=== PATIENT | female | born 1955 | race Caucasian/White ===

== ENCOUNTER 2018-05-21 05:35 | Day surgery (SDC) | payer OTHER ==
[2018-05-18 16:22] VITALS: BMI 26.6
[~2018-05-21 05:35] MED LIST: Pre Op ABX Message 1 EACH MISC MISCELLANE ONE
[2018-05-21] MEDS ORDERED: HYDROmorphone 1 MG/ML 1 ML SYRINGE IVP PRN (06:08)
[2018-05-21] MEDS ORDERED: ONDANSETRON 4 MG/2 ML VIAL IVP ONE (06:08)
[2018-05-21] MEDS ORDERED: MIDAZOLAM 2 MG/2 ML VIAL IV PRN (06:08)
[2018-05-21] MEDS ORDERED: SCOPOLAMINE 1.5MG/72HR PATCH TRANSDERM ONE (06:08)
[2018-05-21] MEDS ORDERED: LACTATED RINGERS 1,000 ML IV SCH (06:08)
[2018-05-21] MEDS ORDERED: DEXAMETHASONE SOD PHOSPHATE 10 MG/ML 1 ML VIAL IV ONE (06:08)
[2018-05-21] MEDS ORDERED: LIDOCAINE 1% 20 ML VIAL (10MG/ML) FOR IV START INTRADERMA ONE (06:30)
[2018-05-21 06:34] VITALS: TEMP 97.8
[2018-05-21] MEDS ORDERED: MIDAZOLAM 2 MG/2 ML VIAL ONE (07:25)
[2018-05-21] MEDS ORDERED: PROPOFOL 10 MG/ML 20 ML VIAL IV ONE (07:25)
[2018-05-21] MEDS ORDERED: ceFAZolin 1,000 MG VIAL ONE (07:25)
[2018-05-21] MEDS ORDERED: LIDOCAINE 1% INJ 10MG/ML (20 ML MDV) ONE (07:25)
[2018-05-21] MEDS ORDERED: fentaNYL (PF) 50 MCG/ML 2 ML AMP ONE (07:25)
[2018-05-21] MEDS ORDERED: LIDOCAINE HCL/PF 20 MG/ML ML SQ ONE ×2 (07:55)
[2018-05-21] MEDS ORDERED: ROPIVACAINE 5 MG/ML 30 ML VIAL MISCELLANE ONE ×2 (07:56)
--- NOTE | 2018-05-21 09:05 | P.PCN ---
Date of Procedure: 05/21/18 Preoperative Diagnosis: Painful hammertoe left fifth Postoperative Diagnosis: Same Procedure(s) Performed: Derotational arthroplasty fifth digit right Anesthesia: local Surgeon: Kayode Hutchinson Estimated Blood Loss (ml): 3 Pathology: none sent Condition: stable Disposition: same day Indications for Procedure: Painful adductovarus hammertoe fifth digit left Operative Findings: Same as clinical findings Description of Procedure: Patient presented 2 hours prior to foot surgery having been nothing by mouth since previous midnight all labs H&P x-rays consent were reviewed and no counter indication to the above proposed procedure found patient was brought to the OR and placed on the OR table in supine position. A pneumatic tourniquet was applied with copious amounts well will web roll placed beneath the tourniquet. The left foot was then prepped and draped in the usual aseptic manner. Attention was then directed to the fifth digit left foot where the digit was anesthetized with a Jimenez block using 7 mL of 2% Xylocaine plain about the fifth metatarsal proximally. The foot was then exsanguinated via elevation and use of an Vivek wrap for 3 minutes after which time the pneumatic tourniquet was inflated 250 mmHg. Attention was then directed to the lateral aspect of the fifth digit at the level of proximal interphalangeal joint. 2 semi- elliptical converging incisions were made running from dorsal distal medial to proximal plantar lateral across the proximal interphalangeal joint. The wound was then deepened down to the proximal interphalangeal joint avoiding all vital structures. The tendon was then tenotomized from medial lateral and capsular tissue was reflected off the head of the proximal phalanx on its dorsal medial lateral plantar surface. Using a sagittal saw the head of the proximal phalanx was removed. The foot was then loaded and adequate surgical reduction clinical deformity was noted. The wound was copiously lavaged with sterile saline solution. The tendon was repaired with 3-0 Vicryl simper up to sutures. Skin edges were reapproximated with 4-0 nylon horizontal mattress and simple interrupted sutures. The foot was then anesthetized with additional 7 mL of 0.5 % Marcaine in a similar fashion as above. The wound was then dressed with Adaptic 4 x 4's Kerlix pneumatic tourniquet was deflated and adequate surgical return was noted to all areas of the left foot. An Vivek wrap was placed over the dressing to secure this in a mildly compressive manner. Patient was brought to recovery room from the [facility] having tolerated procedure and anesthesia well patient was monitored until stable and discharged with postop shoe weightbearing and postop instructions. Patient is to return to clinic as instructed.
[2018-05-21 09:29] VITALS: BP 103/62; PULSE 74; RESP 18
== END 2018-05-21 09:32 | disposition home or self-care (01) ==
LOC: OR 05:35
PROVIDERS: ATTEND Podiatrist
DX: M20.42 Other hammer toe(s) (acquired), left foot (principal); E78.5 Hyperlipidemia, unspecified; H40.9 Unspecified glaucoma; E78.1 Pure hyperglyceridemia; N39.46 Mixed incontinence; Z87.891 Personal history of nicotine dependence; K21.9 Gastro-esophageal reflux disease without esophagitis; Z85.3 Personal history of malignant neoplasm of breast; Z92.21 Personal history of antineoplastic chemotherapy; Z79.810 Long term (current) use of selective estrogen receptor modulators (SERMs); Z92.3 Personal history of irradiation; Z79.82 Long term (current) use of aspirin; Z79.899 Other long term (current) drug therapy
CPT/HCPCS: 28285; J2250; J1100; J2405; J0690; J2001 ×2; J3010; J2795; J2704

== ENCOUNTER 2019-02-17 13:37 | Inpatient (IN) | payer OTHER ==
[2019-02-17] MEDS ORDERED: PIPERACILLIN-TAZOBACTAM 3.375 GM in SODIUM CHLORIDE 0.9% 100 ML IVPB STA (14:56)
[2019-02-17 15:06] LABS: Basophils % (A) 0 %; Eosinophils # (A) 0.2 k/uL (0-0.7); Eosinophils % (A) 1 %; HCT 38.2 % (34.0-46.0); HGB 12.6 gm/dL (11.4-16.0); Lymphocytes # (A) 1.6 k/uL (1.0-4.8); Lymphocytes % (A) 12 %; MCH 31.6 pg (25.0-35.0); MCHC 33.1 g/dL (31.0-37.0); MCV 95.7 fL (80.0-100.0); Mean Platelet Volume 7.3; Monocytes # (A) 0.8 k/uL (0-1.0); Monocytes % (A) 6 %; Neutrophils # (A) 10.3 k/uL (1.3-7.7); Neutrophils % (A) 78 %; Platelet Count 302 k/uL (150-450); RBC 3.99 m/uL (3.80-5.40); RDW 13.2 % (11.5-15.5); WBC 13.1 k/uL (3.8-10.6)
[2019-02-17 15:13] LABS: ALT 38 U/L (9-52); AST 40 U/L (14-36); African American GFR (CKD) >90 (>60 ml/min/1.73 sqM); Albumin 3.6 g/dL (3.5-5.0); Alkaline Phosphatase 91 U/L (38-126); Anion Gap 7 mmol/L; Blood Urea Nitrogen 8 mg/dL (7-17); Calcium 9.5 mg/dL (8.4-10.2); Carbon Dioxide 34 mmol/L (22-30); Chloride 94 mmol/L (98-107); Glucose 120 mg/dL (74-99); Potassium 3.7 mmol/L (3.5-5.1); Sodium 135 mmol/L (137-145); Total Bilirubin 0.8 mg/dL (0.2-1.3); Total Protein 6.7 g/dL (6.3-8.2)
[2019-02-17 15:24] LABS: Appearance,Urine Clear (Clear); Bilirubin,Urine Negative (Negative); Blood,Urine Negative (Negative); Color,Urine Light Yellow; Glucose,Urine (UA) Negative (Negative); Ketones,Urine Negative (Negative); Leukocyte Esterase,Urine Negative (Negative); Nitrite,Urine Negative (Negative); PH, Urine 6.5 (5.0-8.0); Protein,Urine Negative (Negative); Specific Gravity,Urine 1.003 (1.001-1.035); Urobilinogen,Urine <2.0 mg/dL (<2.0)
--- NOTE | 2019-02-17 16:40 | CT ---
EXAMINATION TYPE: CT shoulder RT w con DATE OF EXAM: 02/17/2019 COMPARISON: None HISTORY: axilla abscesses CT DLP: 274.4 mGycm Automated exposure control for dose reduction was used. CONTRAST: Performed with IV Contrast, patient injected with 100 mL of Isovue 300. FINDINGS: Multiple axial sections were obtained from the top of the AC joint to the proximal humerus with intra venous contrast. Exam includes the axilla. There is minor spurring at the shoulder joint. There is spurring at the AC joint. There is subcutaneo us edema in the axilla. There is skin thickening with edema seen on the medial aspect of the axillary recess. There are apparent surgical clips in the medial right axilla. I see no drainable fluid colle ction. There is a 1 cm axillary lymph node. I see no focal bone destruction. IMPRESSION: THERE IS SKIN THICKENING AND MEDIAL SUBCUTANEOUS EDEMA CONSISTENT WITH PHLEGMON AND CELLULITIS. NO DR CROUCH FLUID COLLECTION. SURGICAL CLIPS. NONSPECIFIC AXILLARY LYMPH NODE. NO EVIDENCE OF OSTEOMYELIT IS. OSTEOARTHRITIC CHANGES IN THE SHOULDER JOINT.
--- NOTE | 2019-02-17 16:58 | ED ---
General Adult HPI - General Chief complaint: Skin/Abscess/Foreign Body Stated complaint: infection under arm, sent by Time Seen by Provider: 02/17/19 14:13 Source: patient, family Mode of arrival: wheelchair Limitations: no limitations - History of Present Illness Initial comments: Patient is 64-year-old female with history of breast cancer is presenting to emergency Department with a chief complaint of infection in the armpit. Patient reports she noticed pain in the right axilla approximately one week ago. She reported the pain to the caregiver who did not examine the axilla until today. Caregiver states they went to the primary care today who suggested he come to the ED for further evaluation. Patient reports yellow/white drainage from the infection site. Patient denies any fevers night sweats or chills. Patient denies a previous history of axillary infections. Patient denies nausea or vomiting. Patient reports the pain is exacerbated with palpation and alleviated with rest. Patient has history of breast cancer and had previous surgical procedure on the right breast - Related Data Home Medications Medication Instructions Recorded Confirmed Aspirin 81 mg PO DAILY 05/19/18 02/17/19 Atorvastatin [Lipitor] 10 mg PO HS 05/19/18 02/17/19 Citalopram Hydrobromide 40 mg PO HS 05/19/18 02/17/19 [Citalopram HBr] Gabapentin [Neurontin] 100 mg PO TID 05/19/18 02/17/19 Multivitamins, Thera [Multivitamin 1 tab PO DAILY 05/19/18 02/17/19 (formulary)] [place]-3 Fatty Acids [[place]-3] 1,000 mg PO HS 05/19/18 02/17/19 Omeprazole 20 mg PO DAILY 05/19/18 02/17/19 Oxybutynin Chloride [Ditropan] 5 mg PO BID 05/19/18 02/17/19 traZODone HCL 150 mg PO HS 05/19/18 02/17/19 Acetaminophen [Tylenol Extra 1,000 mg PO HS PRN 02/17/19 02/17/19 Strength] risperiDONE 3 mg PO HS 02/17/19 02/17/19 Allergies Allergy/AdvReac Type Severity Reaction Status Date / Time No Known Allergies Allergy Verified 02/17/19 16:04 Review of Systems ROS Statement: Those systems with pertinent positive or pertinent negative responses have been documented in the HPI. ROS Other: All systems not noted in ROS Statement are negative. Past Medical History Past Medical History: Cancer, Osteoarthritis (OA) Additional Past Medical History / Comment(s): breast cancer History of Any Multi-Drug Resistant Organisms: None Reported Past Surgical History: Breast Surgery Past Anesthesia/Blood Transfusion Reactions: No Reported Reaction Past Psychological History: Anxiety, Depression Smoking Status: Former smoker Past Alcohol Use History: None Reported Past Drug Use History: None Reported - Past Family History Mother Family Medical History: No Reported History Additional Family Medical History / Comment(s): UNKNOWN HISTORY OF HER MOTHER General Exam Limitations: no limitations General appearance: alert, in no apparent distress Head exam: Present: atraumatic, normocephalic, normal inspection Eye exam: Present: normal appearance, PERRL, EOMI Pupils: Present: normal accommodation ENT exam: Present: normal exam, normal oropharynx, mucous membranes moist, TM's normal bilaterally, normal external ear exam Neck exam: Present: normal inspection, full ROM. Absent: lymphadenopathy Respiratory exam: Present: normal lung sounds bilaterally Cardiovascular Exam: Present: regular rate, normal rhythm, normal heart sounds Extremities exam: Present: full ROM (Full range of motion in the right shoulder), tenderness (Tenderness of axilla.), normal capillary refill, other (+2 ulnar and radial pulses). Absent: normal inspection (Multiple abscesses in the right axilla. Purulent drainage noted with surrounding erythema.) Back exam: Present: normal inspection, full ROM Neurological exam: Present: alert, oriented X3 Psychiatric exam: Present: normal affect, normal mood Skin exam: Present: warm, intact, normal color Course Vital Signs 02/17/19 02/17/19 02/17/19 13:59 16:35 18:10 Temperature 98.9 F 98.8 F Pulse Rate 72 69 73 Respiratory 18 18 18 Rate Blood Pressure 90/53 97/57 98/53 O2 Sat by Pulse 93 L 95 94 L Oximetry 02/17/19 20:43 Temperature 98.9 F Pulse Rate 76 Respiratory 18 Rate Blood Pressure 93/60 O2 Sat by Pulse 97 Oximetry Medical Decision Making - Medical Decision Making Patient is 64-year-old female with history of borderline diabetes is presenting to emergency Department with a chief complaint of infection armpit. Patient reports she initially noted irritation about a week ago and is slowly increased in severity. Based on physical examination the patient appears to have multiple draining abscesses in the right axilla. Erythema surrounding the abscess is also noted. Patient is tender in the region. CT of the the right axilla is indicative a phlegmon and cellulitis with cutaneous tissue edema. No signs of active myelitis. Surgical clips are seen on imaging. Wound cultures, blood cultures, lactic acid, CMP CBC, and UA were obtained. Patient appears to have mild leukocytosis but is otherwise unremarkable. Lactate is unremarkable. Drainage at this time is not warranted due to the severity of the abscesses. Patient was given fluids, Zosyn and vancomycin. Patient is afebrile. Patient will be admitted for further medical management. Admitting physician is Dr. Zepeda. Surgery consulted. - Lab Data Result diagrams: 02/17/19 14:30 02/17/19 14:30 Lab Results 02/17/19 02/17/19 02/17/19 Range/Units 14:30 14:30 14:30 WBC 13.1 H (3.8-10.6) k/uL RBC 3.99 (3.80-5.40) m/uL Hgb 12.6 (11.4-16.0) gm/dL Hct 38.2 (34.0-46.0) % MCV 95.7 (80.0-100.0) fL MCH 31.6 (25.0-35.0) pg MCHC 33.1 (31.0-37.0) g/dL RDW 13.2 (11.5-15.5) % Plt Count 302 (150-450) k/uL Neutrophils % 78 % Lymphocytes % 12 % Monocytes % 6 % Eosinophils % 1 % Basophils % 0 % Neutrophils # 10.3 H (1.3-7.7) k/uL Lymphocytes # 1.6 (1.0-4.8) k/uL Monocytes # 0.8 (0-1.0) k/uL Eosinophils # 0.2 (0-0.7) k/uL Basophils # 0.0 (0-0.2) k/uL Sodium 135 L (137-145) mmol/L Potassium 3.7 (3.5-5.1) mmol/L Chloride 94 L (98-107) mmol/L Carbon Dioxide 34 H (22-30) mmol/L Anion Gap 7 mmol/L BUN 8 (7-17) mg/dL Creatinine 0.67 (0.52-1.04) mg/dL Est GFR (CKD-EPI)AfAm >90 (>60 ml/min/1.73 sqM) Est GFR (CKD-EPI)NonAf >90 (>60 ml/min/1.73 sqM) Glucose 120 H (74-99) mg/dL Plasma Lactic Acid [place] 1.2 (0.7-2.0) mmol/L Calcium 9.5 (8.4-10.2) mg/dL Total Bilirubin 0.8 (0.2-1.3) mg/dL AST 40 H (14-36) U/L ALT 38 (9-52) U/L Alkaline Phosphatase 91 (38-126) U/L Total Protein 6.7 (6.3-8.2) g/dL Albumin 3.6 (3.5-5.0) g/dL Urine Color Urine Appearance (Clear) Urine pH (5.0-8.0) Ur Specific [place] (1.001-1.035) Urine Protein (Negative) Urine Glucose (UA) (Negative) Urine Ketones (Negative) Urine Blood (Negative) Urine Nitrite (Negative) Urine Bilirubin (Negative) Urine Urobilinogen (<2.0) mg/dL Ur Leukocyte Esterase (Negative) 02/17/19 Range/Units 14:30 WBC (3.8-10.6) k/uL RBC (3.80-5.40) m/uL Hgb (11.4-16.0) gm/dL Hct (34.0-46.0) % MCV (80.0-100.0) fL MCH (25.0-35.0) pg MCHC (31.0-37.0) g/dL RDW (11.5-15.5) % Plt Count (150-450) k/uL Neutrophils % % Lymphocytes % % Monocytes % % Eosinophils % % Basophils % % Neutrophils # (1.3-7.7) k/uL Lymphocytes # (1.0-4.8) k/uL Monocytes # (0-1.0) k/uL Eosinophils # (0-0.7) k/uL Basophils # (0-0.2) k/uL Sodium (137-145) mmol/L Potassium (3.5-5.1) mmol/L Chloride (98-107) mmol/L Carbon Dioxide (22-30) mmol/L Anion Gap mmol/L BUN (7-17) mg/dL Creatinine (0.52-1.04) mg/dL Est GFR (CKD-EPI)AfAm (>60 ml/min/1.73 sqM) Est GFR (CKD-EPI)NonAf (>60 ml/min/1.73 sqM) Glucose (74-99) mg/dL Plasma Lactic Acid [place] (0.7-2.0) mmol/L Calcium (8.4-10.2) mg/dL Total Bilirubin (0.2-1.3) mg/dL AST (14-36) U/L ALT (9-52) U/L Alkaline Phosphatase (38-126) U/L Total Protein (6.3-8.2) g/dL Albumin (3.5-5.0) g/dL Urine Color Light Yellow Urine Appearance Clear (Clear) Urine pH 6.5 (5.0-8.0) Ur Specific [place] 1.003 (1.001-1.035) Urine Protein Negative (Negative) Urine Glucose (UA) Negative (Negative) Urine Ketones Negative (Negative) Urine Blood Negative (Negative) Urine Nitrite Negative (Negative) Urine Bilirubin Negative (Negative) Urine Urobilinogen <2.0 (<2.0) mg/dL Ur Leukocyte Esterase Negative (Negative) Disposition Clinical Impression: Abscess of right axilla Disposition: ADMITTED IP TO THIS [facility] Condition: Stable Is patient prescribed a controlled substance at d/c from ED?: No Time of Disposition: 01:39
[2019-02-17] MEDS ORDERED: VANCOMYCIN 1,500 MG in SODIUM CHLORIDE 0.9% 250 ML IVPB STA (17:29)
[2019-02-17] MEDS ORDERED: NALOXONE 0.4 MG/ML 1 ML VIAL IV PRN (17:30)
[2019-02-17] MEDS ORDERED: CALCIUM CARBONATE 500 MG CHEWABLE PO PRN (17:30)
[2019-02-17] MEDS ORDERED: SODIUM CHLORIDE 0.9% 1,000 ML IV STA (17:30)
[2019-02-17] MEDS ORDERED: KETOROLAC 30 MG/ML 1 ML VIAL IVP PRN (17:30)
[2019-02-17] MEDS ORDERED: ONDANSETRON 4 MG/2 ML VIAL IVP PRN (17:30)
[2019-02-17] MEDS ORDERED: MORPHINE SULFATE 4 MG/ML SYRINGE IV PRN (17:30)
[2019-02-17] MEDS ORDERED: IBUPROFEN 400 MG TAB PO PRN (17:30)
[2019-02-17] MEDS: SODIUM CHLORIDE 0.9% 1,000 ML IV SCH (17:39)
[2019-02-17] MEDS ORDERED: VANCOMYCIN IV PER PHARMACY 1 EACH MISC MISCELLANE PRN (21:03)
[2019-02-17] MEDS ORDERED: HYDROcodone/APAP 5-325MG 1 EACH TAB PO PRN (21:15)
[2019-02-17] MEDS ORDERED: RISPERIDONE 3 MG PO SCH (21:15)
[2019-02-17] MEDS: ATORVASTATIN 10 MG TAB PO SCH (21:24)
[2019-02-17] MEDS: traZODone HCL 50 MG TAB PO SCH ×2 (21:24→21:39)
[2019-02-17] MEDS: GABAPENTIN 100 MG CAP PO SCH (21:24)
[2019-02-17] MEDS: FAMOTIDINE 20 MG TAB PO SCH (21:24)
[2019-02-17] MEDS: CITALOPRAM HYDROBROMIDE 20 MG TAB PO SCH (21:24)
[2019-02-17] MEDS: risperiDONE 1 MG TAB PO SCH (21:39)
[2019-02-17] MEDS: OXYBUTYNIN CHLORIDE 5 MG TAB PO SCH (21:39)
[2019-02-17] MEDS: HEPARIN SODIUM,PORCINE 5,000 UNIT/ML 1 ML VIAL SQ SCH (21:40)
[2019-02-17] MEDS: ACETAMINOPHEN TAB 325 MG TAB PO PRN (21:48)
--- NOTE | 2019-02-17 23:50 | HP ---
HISTORY AND PHYSICAL DATE OF SERVICE: 02/17/2019 CHIEF COMPLAINT: Pain and swelling of the right axilla. HISTORY OF PRESENT ILLNESS: This 64-year-old woman with a past medical history of multiple medical problems including history of DJD, history of breast cancer, left breast cancer, history of anxiety, depression, history of nicotine dependence, being followed by Dr. Mary Bell in the outpatient setting was noted to have significant abscess and purulent discharge on the right axilla for several days. Apparently the caregiver did not examine the axilla till today and the patient was noted to have significant drainage, yellowish drainage and pain and the patient came to [facility] and was admitted for further evaluation and treatment. In the ER, the patient had a CT scan which showed skin thickening with phlegmon and cellulitis with cellulitis and the patient was admitted to the hospital for further evaluation and treatment. There is no history of any fever, rigors or chills. No history of headache, loss of consciousness, seizures. PAST MEDICAL HISTORY: History of DJD, history of breast cancer, history of anxiety, depression, remote history of nicotine dependence, history of herpes simplex type 1. MEDICATIONS: Home medications are reviewed and include: 1. Trazodone 50 mg q.h.s. 2. Risperdal 3 mg q.h.s. 3. [place] 3 - 1 g q.h.s. 4. Celexa 40 mg q.h.s. 5. Lipitor 10 mg q.h.s. 6. Tylenol 1000 mg q.h.s. p.r.n. 7. Ditropan 5 mg p.o. b.i.d. 8. Omeprazole 20 mg daily. 9. Multivitamins one p.o. daily. 10.Aspirin 81 mg daily. 11.Neurontin 100 mg p.o. t.i.d. ALLERGIES: None. FAMILY HISTORY: Unknown. SOCIAL HISTORY: Previous history of smoking. No history of current smoking or alcohol intake. REVIEW OF SYSTEMS: ENT: Diminished vision. Diminished hearing. CARDIOVASCULAR: No angina or palpitations. RESPIRATIONS: No cough or hemoptysis. GI no nausea or vomiting. no dysuria. NERVOUS SYSTEM: No numbness or weakness. ALLERGY/IMMUNOLOGY: No asthma, hayfever. MUSCULOSKELETAL: As mentioned earlier. HEMATOLOGY/ONCOLOGY: No history of anemia. ENDOCRINE: No history of diabetes or hypothyroidism. CONSTITUTIONAL: As mentioned earlier. DERMATOLOGY: As mentioned earlier. RHEUMATOLOGY: Negative. PSYCHIATRIC: As mentioned earlier. PHYSICAL EXAMINATION: Alert and oriented x3. Pulse is 76. Blood pressure is 93/68, respiration 18, temperature 98.2, pulse ox 97% on room air. HEENT: Conjunctivae normal. Oral mucosa moist. NECK is no jugular venous distention. No carotid bruit. No lymph node enlargement. CARDIOVASCULAR system: S1, S2 muffled. RESPIRATORY: Breath sounds diminished in the bases. No rhonchi. No crackles. Exam of the right axilla multiple areas of induration abscess drainage, possible hidradenitis suppurativa. ABDOMEN: Soft, nontender. No mass palpable. LEGS: No edema. No swelling. NERVOUS SYSTEM: Higher functions as mentioned. Moves all four limbs. No focal motor or sensory deficits. LYMPHATICS: No lymph nodes palpable in the neck, axilla or groin. SKIN: No ulcers, rashes or bleeding. JOINTS: No active deforming arthropathy. LABS: WBC 13.2, hemoglobin 12.6, sodium 135. AST 40. ASSESSMENT: 1. Significant infection of the right axilla with possibly hidradenitis suppurativa with surrounding cellulitis and abscess. 2. Hyponatremia. 3. Increased WBC. 4. History of degenerative joint disease. 5. History of breast cancer left. 6. History of anxiety/depression. 7. History of herpes simplex. 8. Remote history of nicotine dependence. RECOMMENDATIONS AND DISCUSSION: In this 64-year-old woman who presented with multiple medical issues, at this time I recommend to continue current medications, symptomatic treatment. We will initiate broad-spectrum IV antibiotics. I would also recommend infectious disease evaluation and as well as surgical evaluation. Guarded prognosis because of multiple complex medical issues. Further recommendations to follow. A copy of dictation being forwarded to Dr. Mary Bell who is the primary physician. We will resume the home medications. See orders for details. MMODL / IJN: [id number] /
[2019-02-18] MEDS: PIPERACILLIN-TAZOBACTAM 3.375 GM in SODIUM CHLORIDE 0.9% 100 ML IVPB SCH ×4 (00:19→23:09)
[2019-02-18] MEDS: VANCOMYCIN 1,250 MG in SODIUM CHLORIDE 0.9% 250 ML IVPB SCH ×3 (01:09→17:18)
[2019-02-18] MEDS: risperiDONE 1 MG TAB PO SCH (01:15)
[2019-02-18] MEDS: FAMOTIDINE 20 MG TAB PO SCH (07:55)
[2019-02-18] MEDS: GABAPENTIN 100 MG CAP PO SCH ×3 (07:55→20:11)
[2019-02-18] MEDS: PANTOPRAZOLE 40 MG TABLET PO SCH (07:55)
[2019-02-18] MEDS: OXYBUTYNIN CHLORIDE 5 MG TAB PO SCH ×2 (07:56→20:15)
[2019-02-18] MEDS: MULTIVITAMINS, THERA 1 EACH TAB PO SCH (07:56)
[2019-02-18] MEDS: HEPARIN SODIUM,PORCINE 5,000 UNIT/ML 1 ML VIAL SQ SCH ×2 (07:57→20:11)
[2019-02-18] MEDS: ASPIRIN 81 MG PO SCH (07:59)
[2019-02-18 10:15] LABS: African American GFR (CKD) >90 (>60 ml/min/1.73 sqM); Anion Gap 7 mmol/L; Blood Urea Nitrogen 7 mg/dL (7-17); Calcium 8.9 mg/dL (8.4-10.2); Carbon Dioxide 30 mmol/L (22-30); Chloride 104 mmol/L (98-107); Glucose 140 mg/dL (74-99); Sodium 141 mmol/L (137-145)
[2019-02-18 10:16] LABS: Basophils % (A) 1 %; Eosinophils # (A) 0.2 k/uL (0-0.7); Eosinophils % (A) 2 %; HCT 36.2 % (34.0-46.0); HGB 11.9 gm/dL (11.4-16.0); Lymphocytes % (A) 13 %; MCH 31.9 pg (25.0-35.0); MCHC 32.9 g/dL (31.0-37.0); MCV 96.8 fL (80.0-100.0); Mean Platelet Volume 6.9; Monocytes # (A) 0.4 k/uL (0-1.0); Monocytes % (A) 5 %; Neutrophils # (A) 5.7 k/uL (1.3-7.7); Neutrophils % (A) 77 %; Platelet Count 318 k/uL (150-450); RBC 3.74 m/uL (3.80-5.40); RDW 13.3 % (11.5-15.5); WBC 7.4 k/uL (3.8-10.6)
[2019-02-18] MEDS: ACETAMINOPHEN TAB 325 MG TAB PO PRN ×2 (11:39→20:10)
--- NOTE | 2019-02-18 12:17 | P.GSCN ---
<Brittany Siddiqi A - Last Filed: 02/18/19 12:14> History of Present Illness Consult date: 02/18/19 Reason for Consult: Multiple abscesses Requesting physician: James Cohen History of present illness: CHIEF COMPLAINT: Multiple abscesses HISTORY OF PRESENT ILLNESS: 64-year-old female who presented to the emergency room due to multiple abscesses of right armpit. Patient states she started noticing about a week and a half ago. She reports that she lives alone and has a caregiver who comes to see her once every 1-2 weeks. When her caregiver came to see her she showed her her abscesses and recommended she come to the emergency room for further evaluation. Patient reports the area has been draining at home and increasingly more painful. She reports a history of breast cancer with bilateral mastectomy but states she does not remember which breasts she had her breast cancer in but thinks it may be her left breast. PAST MEDICAL HISTORY: See list. PAST SURGICAL HISTORY: See list. SOCIAL HISTORY: No illicit drug use. REVIEW OF SYSTEMS: CONSTITUTIONAL: Denies fever or chills. HEENT: Denies blurred vision, vision changes, or eye pain. Denies hemoptysis CARDIOVASCULAR: Denies chest pain or pressure. RESPIRATORY: No shortness of breath. GASTROINTESTINAL: Denies abdominal pain. Denies nausea or vomiting HEMATOLOGIC: Denies bleeding disorders. GENITOURINARY: Denies any blood in urine. SKIN: Reports abscesses to right axilla with pain and drainage over the past week PHYSICAL EXAM: VITAL SIGNS: Reviewed. GENERAL: Well-developed in no acute distress. HEENT: No sclera icterus. Extraocular movements grossly intact. Moist buccal mucosa. Head is atraumatic, normocephalic. ABDOMEN: Soft. Nondistended. Nontender. NEUROLOGIC: Alert and oriented. Cranial nerves II through XII grossly intact. SKIN: Right axilla with approximately five abscesses. Draining purulent fluid. No foul odor. Surrounding erythema. Axilla indurated. No palpable subcutaneous fluid collection. LABORATORY DATA: WBC 13.1. Hemoglobin 12.6. Platelet count 302. IMAGING: CT shoulder: Skin thickening and medial subcutaneous edema consistent with phlegmon and cellulitis. No drainable fluid collection. Nonspecific axillary lymph node. No evidence of osteomyelitis. ASSESSMENT: 1. Multiple abscesses of right axilla 2. Leukocytosis PLAN: 1. NPO 2. Continue IV antibiotics. Infectious disease on consult. 3. Patients wounds are actively draining. However, due to severity of abscesses she may require surgical intervention. Case discussed with Dr. Hamilton. He will evaluate patient today for possible I&D this afternoon. Nurse practitioner note has been reviewed by physician. Signing provider agrees with the documented findings, assessment, and plan of care. Past Medical History Past Medical History: Cancer, Osteoarthritis (OA) Additional Past Medical History / Comment(s): breast cancer History of Any Multi-Drug Resistant Organisms: None Reported Past Surgical History: Breast Surgery Past Anesthesia/Blood Transfusion Reactions: No Reported Reaction Past Psychological History: Anxiety, Depression Smoking Status: Former smoker Past Alcohol Use History: None Reported Past Drug Use History: None Reported - Past Family History Mother Family Medical History: No Reported History Additional Family Medical History / Comment(s): UNKNOWN HISTORY OF HER MOTHER Medications and Allergies Home Medications Medication Instructions Recorded Confirmed Type Aspirin 81 mg PO DAILY 05/19/18 02/17/19 History Atorvastatin [Lipitor] 10 mg PO HS 05/19/18 02/17/19 History Citalopram Hydrobromide 40 mg PO HS 05/19/18 02/17/19 History [Citalopram HBr] Gabapentin [Neurontin] 100 mg PO TID 05/19/18 02/17/19 History Multivitamins, Thera [Multivitamin 1 tab PO DAILY 05/19/18 02/17/19 History (formulary)] [place]-3 Fatty Acids [[place]-3] 1,000 mg PO HS 05/19/18 02/17/19 History Omeprazole 20 mg PO DAILY 05/19/18 02/17/19 History Oxybutynin Chloride [Ditropan] 5 mg PO BID 05/19/18 02/17/19 History traZODone HCL 150 mg PO HS 05/19/18 02/17/19 History Acetaminophen [Tylenol Extra 1,000 mg PO HS PRN 02/17/19 02/17/19 History Strength] risperiDONE 3 mg PO HS 02/17/19 02/17/19 History Allergies Allergy/AdvReac Type Severity Reaction Status Date / Time No Known Allergies Allergy Verified 02/17/19 16:04 Surgical - Exam Vital Signs Temp Pulse Resp BP Pulse Ox 98.9 F 72 18 90/53 93 L 02/17/19 13:59 02/17/19 13:59 02/17/19 13:59 02/17/19 13:59 02/17/19 13:59 Results - Labs 02/18/19 09:32 02/18/19 09:32 Abnormal Lab Results - Last 24 Hours (Table) 02/17/19 02/17/19 02/18/19 Range/Units 14:30 14:30 09:32 WBC 13.1 H (3.8-10.6) k/uL RBC 3.74 L (3.80-5.40) m/uL Neutrophils # 10.3 H (1.3-7.7) k/uL Sodium 135 L (137-145) mmol/L Chloride 94 L (98-107) mmol/L Carbon Dioxide 34 H (22-30) mmol/L Glucose 120 H (74-99) mg/dL AST 40 H (14-36) U/L 02/18/19 Range/Units 09:32 WBC (3.8-10.6) k/uL RBC (3.80-5.40) m/uL Neutrophils # (1.3-7.7) k/uL Sodium (137-145) mmol/L Chloride (98-107) mmol/L Carbon Dioxide (22-30) mmol/L Glucose 140 H (74-99) mg/dL AST (14-36) U/L Microbiology - Last 24 Hours (Table) 02/17/19 14:30 Gram Stain - Preliminary Axilla - Right Wound Culture - Preliminary Presumptive Staph aureus Diabetes panel 02/17/19 02/18/19 Range/Units 14:30 09:32 Sodium 135 L 141 (137-145) mmol/L Potassium 3.7 4.0 (3.5-5.1) mmol/L Chloride 94 L 104 (98-107) mmol/L Carbon Dioxide 34 H 30 (22-30) mmol/L BUN 8 7 (7-17) mg/dL Creatinine 0.67 0.70 (0.52-1.04) mg/dL Glucose 120 H 140 H (74-99) mg/dL Calcium 9.5 8.9 (8.4-10.2) mg/dL AST 40 H (14-36) U/L ALT 38 (9-52) U/L Alkaline Phosphatase 91 (38-126) U/L Total Protein 6.7 (6.3-8.2) g/dL Albumin 3.6 (3.5-5.0) g/dL Calcium panel 02/17/19 02/18/19 Range/Units 14:30 09:32 Calcium 9.5 8.9 (8.4-10.2) mg/dL Albumin 3.6 (3.5-5.0) g/dL Pituitary panel 02/17/19 02/18/19 Range/Units 14:30 09:32 Sodium 135 L 141 (137-145) mmol/L Potassium 3.7 4.0 (3.5-5.1) mmol/L Chloride 94 L 104 (98-107) mmol/L Carbon Dioxide 34 H 30 (22-30) mmol/L BUN 8 7 (7-17) mg/dL Creatinine 0.67 0.70 (0.52-1.04) mg/dL Glucose 120 H 140 H (74-99) mg/dL Calcium 9.5 8.9 (8.4-10.2) mg/dL Adrenal panel 02/17/19 02/18/19 Range/Units 14:30 09:32 Sodium 135 L 141 (137-145) mmol/L Potassium 3.7 4.0 (3.5-5.1) mmol/L Chloride 94 L 104 (98-107) mmol/L Carbon Dioxide 34 H 30 (22-30) mmol/L BUN 8 7 (7-17) mg/dL Creatinine 0.67 0.70 (0.52-1.04) mg/dL Glucose 120 H 140 H (74-99) mg/dL Calcium 9.5 8.9 (8.4-10.2) mg/dL Total Bilirubin 0.8 (0.2-1.3) mg/dL AST 40 H (14-36) U/L ALT 38 (9-52) U/L Alkaline Phosphatase 91 (38-126) U/L Total Protein 6.7 (6.3-8.2) g/dL Albumin 3.6 (3.5-5.0) g/dL <Clark Hamilton - Last Filed: 02/18/19 15:08> History of Present Illness History of present illness: As above. Patient with multiple small abscesses right axilla. Concern for possibility of axillary breast cancer recurrence. We'll proceed with debridemen t drainage and biopsy of this tissue. Risks of bleeding, infection, postoperative wound discussed with the patient and her guardian. We'll proceed. Surgical - Exam Vital Signs Temp Pulse Resp BP Pulse Ox 98.9 F 72 18 90/53 93 L 02/17/19 13:59 02/17/19 13:59 02/17/19 13:59 02/17/19 13:59 02/17/19 13:59 Results - Labs 02/18/19 09:32 02/18/19 09:32 Abnormal Lab Results - Last 24 Hours (Table) 02/17/19 02/18/19 02/18/19 Range/Units 14:30 09:32 09:32 RBC 3.74 L (3.80-5.40) m/uL Sodium 135 L (137-145) mmol/L Chloride 94 L (98-107) mmol/L Carbon Dioxide 34 H (22-30) mmol/L Glucose 120 H 140 H (74-99) mg/dL AST 40 H (14-36) U/L Microbiology - Last 24 Hours (Table) 02/17/19 14:30 Gram Stain - Preliminary Axilla - Right Wound Culture - Preliminary Presumptive Staph aureus Diabetes panel 02/17/19 02/18/19 Range/Units 14:30 09:32 Sodium 135 L 141 (137-145) mmol/L Potassium 3.7 4.0 (3.5-5.1) mmol/L Chloride 94 L 104 (98-107) mmol/L Carbon Dioxide 34 H 30 (22-30) mmol/L BUN 8 7 (7-17) mg/dL Creatinine 0.67 0.70 (0.52-1.04) mg/dL Glucose 120 H 140 H (74-99) mg/dL Calcium 9.5 8.9 (8.4-10.2) mg/dL AST 40 H (14-36) U/L ALT 38 (9-52) U/L Alkaline Phosphatase 91 (38-126) U/L Total Protein 6.7 (6.3-8.2) g/dL Albumin 3.6 (3.5-5.0) g/dL Calcium panel 02/17/19 02/18/19 Range/Units 14:30 09:32 Calcium 9.5 8.9 (8.4-10.2) mg/dL Albumin 3.6 (3.5-5.0) g/dL Pituitary panel 02/17/19 02/18/19 Range/Units 14:30 09:32 Sodium 135 L 141 (137-145) mmol/L Potassium 3.7 4.0 (3.5-5.1) mmol/L Chloride 94 L 104 (98-107) mmol/L Carbon Dioxide 34 H 30 (22-30) mmol/L BUN 8 7 (7-17) mg/dL Creatinine 0.67 0.70 (0.52-1.04) mg/dL Glucose 120 H 140 H (74-99) mg/dL Calcium 9.5 8.9 (8.4-10.2) mg/dL Adrenal panel 02/17/19 02/18/19 Range/Units 14:30 09:32 Sodium 135 L 141 (137-145) mmol/L Potassium 3.7 4.0 (3.5-5.1) mmol/L Chloride 94 L 104 (98-107) mmol/L Carbon Dioxide 34 H 30 (22-30) mmol/L BUN 8 7 (7-17) mg/dL Creatinine 0.67 0.70 (0.52-1.04) mg/dL Glucose 120 H 140 H (74-99) mg/dL Calcium 9.5 8.9 (8.4-10.2) mg/dL Total Bilirubin 0.8 (0.2-1.3) mg/dL AST 40 H (14-36) U/L ALT 38 (9-52) U/L Alkaline Phosphatase 91 (38-126) U/L Total Protein 6.7 (6.3-8.2) g/dL Albumin 3.6 (3.5-5.0) g/dL
[2019-02-18] MEDS ORDERED: IV FLUID CONTINUATION 1,000 ML IV ONE (14:48)
[2019-02-18] MEDS ORDERED: BUPIVACAIN-EPI 0.25%-1:200,000 30 ML VIAL SQ ONE (15:00)
[2019-02-18] MEDS ORDERED: ePHEDrine SULFATE/0.9% NACL/PF 50 MG/5 ML SYRINGE IV ONE (15:08)
[2019-02-18] MEDS ORDERED: PROPOFOL 10 MG/ML 20 ML VIAL IV ONE (15:08)
[2019-02-18] MEDS ORDERED: fentaNYL (PF) 50 MCG/ML 2 ML AMP ONE (15:08)
[2019-02-18] MEDS ORDERED: LIDOCAINE 1% INJ 10MG/ML (20 ML MDV) ONE (15:08)
[2019-02-18] MEDS ORDERED: LACTATED RINGERS 1,000 ML IV ONE (16:01)
--- NOTE | 2019-02-18 16:27 | P.OP ---
Date of Procedure: 02/18/19 Procedure(s) Performed: PREOPERATIVE DIAGNOSIS: Right axillary wounds with abscess POSTOPERATIVE DIAGNOSIS: Same PROCEDURE: Incision and drainage with debridement and biopsy multiple infected nodules right axilla SURGEON: Joy EBL: 25 mL ANESTHESIA: General COMPLICATIONS: None OPERATIVE PROCEDURE: Patient placed in the operative table in the supine position. The patient was placed under general anesthesia. The right axilla was prepped and draped in the usual sterile fashion. The patient had multiple small nodules in the axilla that were frankly infected. There was open wounds with purulent fluid present. The skin and subcutaneous tissues were debrided sharply unroofing all of these separate wounds. By the time we were finished we had a total of 4 wounds that were open and cleaned out in the right axilla. 2 of the wounds were smaller measuring 1.5 cm in size. One was medium size measuring about 2.5 cm in size and the largest was a oval shape wound measuring 4 x 1.5 cm in size. The debridement took place sharply and an excisional manner. The purulence was completely evacuated. The tissue was all sent to pathology. We suspect malignancy at this point. Bleeding was controlled using electrocautery and direct pressure. No further bleeding was seen at that point of significance. Sterile dressings were then applied. DISPOSITION: Stable to recovery room
[2019-02-18] MEDS: SODIUM CHLORIDE 0.9% 1,000 ML IV SCH (17:19)
[2019-02-18] MEDS: traZODone HCL 50 MG TAB PO SCH ×2 (20:07→20:11)
[2019-02-18] MEDS: CITALOPRAM HYDROBROMIDE 20 MG TAB PO SCH (20:11)
[2019-02-18] MEDS: ATORVASTATIN 10 MG TAB PO SCH (20:12)
[2019-02-18] MEDS ORDERED: NON-FORMULARY DRUG (Omega-3 Fatty Acids [Omega-3] 1,000 MG) PO SCH (21:00)
--- NOTE | 2019-02-18 23:33 | P.CONS ---
History of Present Illness - Reason for Consult Consult date: 02/18/19 right axilla abscess/infection Requesting physician: Salvador Vieira - Chief Complaint right axilla pain and draiange x 1 week - History of Present Illness Patient is a 64-year-old female past medical history significant for right breast cancer presenting to the ER with chief complaints of right axilla pain swelling redness and multiple pustules/lesions for the last 1 week, the patient denies any history of any trauma she has been complaining of pain to the right axillary area to be more of a sharp to dull aching about 5 out of 10 and no radiation patient did have some purulent drainage from these lesions patient did have some chills but denies high-grade fever with the symptom the patient was evaluated by the ER physician on presentation the hospital patient did have CT of the shoulder area we did show soft tissue swelling but no definite abscess formation patient did have elevated white count of 13,000 she was afebrile patient did have local wound culture was obtained as well as blood cultures she was started on vancomycin and Zosyn infectious disease was consulted for further recommendation about antibiotic therapy. Review of Systems Positive points has been mentioned in the HPI , rest of the systems are negative Past Medical History Past Medical History: Cancer, Osteoarthritis (OA) Additional Past Medical History / Comment(s): breast cancer History of Any Multi-Drug Resistant Organisms: None Reported Past Surgical History: Breast Surgery Past Anesthesia/Blood Transfusion Reactions: No Reported Reaction Past Psychological History: Anxiety, Depression Smoking Status: Former smoker Past Alcohol Use History: None Reported Past Drug Use History: None Reported - Past Family History Mother Family Medical History: No Reported History Additional Family Medical History / Comment(s): UNKNOWN HISTORY OF HER MOTHER Medications and Allergies Home Medications Medication Instructions Recorded Confirmed Type Aspirin 81 mg PO DAILY 05/19/18 02/17/19 History Atorvastatin [Lipitor] 10 mg PO HS 05/19/18 02/17/19 History Citalopram Hydrobromide 40 mg PO HS 05/19/18 02/17/19 History [Citalopram HBr] Gabapentin [Neurontin] 100 mg PO TID 05/19/18 02/17/19 History Multivitamins, Thera [Multivitamin 1 tab PO DAILY 05/19/18 02/17/19 History (formulary)] [place]-3 Fatty Acids [[place]-3] 1,000 mg PO HS 05/19/18 02/17/19 History Omeprazole 20 mg PO DAILY 05/19/18 02/17/19 History Oxybutynin Chloride [Ditropan] 5 mg PO BID 05/19/18 02/17/19 History traZODone HCL 150 mg PO HS 05/19/18 02/17/19 History Acetaminophen [Tylenol Extra 1,000 mg PO HS PRN 02/17/19 02/17/19 History Strength] risperiDONE 3 mg PO HS 02/17/19 02/17/19 History Allergies Allergy/AdvReac Type Severity Reaction Status Date / Time No Known Allergies Allergy Verified 02/17/19 16:04 Physical Exam Vitals: Vital Signs Temp Pulse Pulse Resp BP BP Pulse Ox 02/18/19 21:00 98.4 F 72 16 90/50 94 L 02/18/19 17:07 97.8 F 72 18 119/72 93 L 02/18/19 16:30 78 16 110/62 97 02/18/19 16:15 84 16 114/59 97 02/18/19 16:03 97.9 F 90 12 118/56 99 02/18/19 14:55 98.2 F 67 18 87/49 92 L 02/18/19 14:23 112/67 02/18/19 12:29 98.3 F 63 18 112/67 96 02/18/19 04:33 98.5 F 72 16 89/52 91 L Intake and Output 02/18/19 02/18/19 02/19/19 14:59 22:59 06:59 Intake Total 450 350 Output Total 10 Balance 450 340 Intake: IV 100 350 Intake, IV Titration 350 Amount Piperacillin-Tazobactam 3 100 .375 gm In Sodium Chloride 0.9% 100 ml @ 25 mls/hr IVPB Q8HR [facility] Rx# :[id number] Vancomycin 1,250 mg In 250 Sodium Chloride 0.9% 250 ml @ 125 mls/hr IVPB Q8H [facility] Rx#:[id number] Output: Estimated Blood Loss 10 Other: Voiding Method Toilet Toilet # Voids 1 ENERAL DESCRIPTION: Middle-aged female lying in bed, no distress. No tachypnea or accessory muscle of respiration use. HEENT: Shows Pallor , no scleral icterus. Oral mucous membrane is dry. No pharyngeal erythema or thrush NECK: Trachea central, no thyromegaly. LUNGS: Unlabored breathing. Clear to auscultation anteriorly. No wheeze or crackle. HEART: S1, S2, regular rate and rhythm. No loud murmur ABDOMEN: Soft, no tenderness , guarding or rigidity, no organomegaly EXTREMITIES: No edema of feet.SKIN: No rash, no masses palpable. Right axila with multiple wounds with purulent draiange , some erythema NEUROLOGICAL: The patient is awake, alert, oriented x3, mood and affect normal. Results CBC & Chem 7: 02/18/19 09:32 02/18/19 09:32 Labs: Abnormal Lab Results - Last 24 Hours (Table) 02/18/19 02/18/19 Range/Units 09:32 09:32 RBC 3.74 L (3.80-5.40) m/uL Glucose 140 H (74-99) mg/dL Microbiology - Last 24 Hours (Table) 02/17/19 14:30 Blood Culture - Preliminary Blood No Growth after 24 hours 02/17/19 14:30 Gram Stain - Preliminary Axilla - Right Wound Culture - Preliminary Presumptive Staph aureus Assessment and Plan Assessment: 1-patient with right axillary area abscess and cellulitis with initial wound cul tures currently showing presumptive staph aureus will need to cover for the community associated MRSA to the likely pathogen in this patient who did have a history of right breast cancer underlying malignant nodules with secondary bacterial infection need to be considered (1) Abscess of right axilla Current Visit: Yes Status: Acute Code(s): L02.411 - CUTANEOUS ABSCESS OF RIGHT AXILLA SNOMED Code(s): 98994920 Plan: 1-await surgical drainage and deep cultures 2-vancomycin pharmacy to dose target trough of 15 while watching his kidney function and vancomycin trough closely 3-discontinue Zosyn as no gram negative has been grown and to decrease risk of nephrotoxicity We will follow on clinical condition and cultures to further adjust medication if needed Thank you for this consultation will follow this patient along with you Time with Patient: Greater than 30
[2019-02-19] MEDS: VANCOMYCIN 1,250 MG in SODIUM CHLORIDE 0.9% 250 ML IVPB SCH (01:53)
--- NOTE | 2019-02-19 05:13 | P.PN ---
Subjective Progress Note Date: 02/18/19 Principal diagnosis: This is a 64 year old female that was admitted for right axilla pain, abscesses with drainage for the last week and is being monitored closely. Patient is curr ently lying in bed in no acute distress. Patient is NPO at this time and awaiting surgical consult. Patient states that the drainage is about the same as yesterday with some tenderness as well. Patient denies any chest pain, shortness of breath, or palpitations at this time. Infectious disease was consulted as well. Patient is currently afebrile. Patient is on IV antibiotics in the form of vanco and zosyn. Will continue to monitor closely. Guarded prognosis. Objective - Vital Signs Vital signs: Vital Signs Temp 97.9 F 02/18/19 16:03 Pulse 84 02/18/19 16:15 Resp 16 02/18/19 16:15 BP 114/59 02/18/19 16:15 Pulse Ox 97 02/18/19 16:15 Intake & Output 02/17/19 02/18/19 02/18/19 18:59 06:59 18:59 Intake Total 1540 750 Output Total 10 Balance 1540 740 Weight 72.575 kg Intake: IV 400 Intake, IV Titration 950 350 Amount Piperacillin-Tazobactam 3 100 100 .375 gm In Sodium Chloride 0.9% 100 ml @ 25 mls/hr IVPB Q8HR [facility] Rx# :[id number] Sodium Chloride 0.9% 1, 600 000 ml @ 50 mls/hr IV . Q20H [facility] Rx#:[id number] Vancomycin 1,250 mg In 250 250 Sodium Chloride 0.9% 250 ml @ 125 mls/hr IVPB Q8H [facility] Rx#:[id number] Oral 590 Output: Estimated Blood Loss 10 Other: Voiding Method Toilet # Voids 2 - Exam Gen: This is a 64 year old female lying in bed in no acute distress. Vital signs are stable. Blood pressure is 89/52, pulse is 72, resp are 16, temp is 98.5F, 02 sat is 91% on room air. HEENT: Head is atraumatic, normocephalic. Pupils equal, round. Sclerae is anicteric. NECK: Supple. No JVD. No lymphadenopathy. No thyromegaly. LUNGS: Diminished at the bases otherwise clear upon auscultation. No wheezes or rhonchi. No intercostal retractions. HEART: Regular rate and rhythm. S1, S2 muffled. No murmur. ABDOMEN: Soft. Bowel sounds are present. No masses. No tenderness. EXTREMITIES: No pedal edema. No calf tenderness. NEUROLOGICAL: Patient is awake, alert and oriented x3. Cranial nerves 2 through 12 are grossly intact. SKIN: right axilla displays multiple abscesses with purulent, thick, gelatinous drainage noted. - Labs CBC & Chem 7: 02/18/19 09:32 02/18/19 09:32 Labs: Abnormal Lab Results - Last 24 Hours (Table) 02/18/19 02/18/19 Range/Units 09:32 09:32 RBC 3.74 L (3.80-5.40) m/uL Glucose 140 H (74-99) mg/dL Microbiology - Last 24 Hours (Table) 02/17/19 14:30 Gram Stain - Preliminary Axilla - Right Wound Culture - Preliminary Presumptive Staph aureus Assessment and Plan Assessment: Significant infection of the right axilla with possibly hidradenitis suppurativa with surrounding cellulitis and abscess Hyponatremia Increased WBC History of degenerative joint disease History of breast cancer of the left side History of anxiety, depression History of herpes simplex Remote history of nicotine dependence Recommendations and discussion: Recommend to continue current medications, management, and symptomatic treatment. Awaiting infectious disease and surgery consult for possible further interventions. Patient will continue on IV antibiotics at this time and awaiting ID recommendations. Cultures thus far are presumptive staph and will await final report. Guarded prognosis. Further recommendations to follow. Patient is to remain NPO in the event that surgery will I&D the abscesses of the right axilla.
[2019-02-19] MEDS: ACETAMINOPHEN TAB 500 MG TAB PO PRN ×2 (08:02→17:19)
[2019-02-19] MEDS: ASPIRIN 81 MG PO SCH (08:02)
[2019-02-19] MEDS: MULTIVITAMINS, THERA 1 EACH TAB PO SCH (08:02)
[2019-02-19] MEDS: GABAPENTIN 100 MG CAP PO SCH ×3 (08:05→20:51)
[2019-02-19] MEDS: HEPARIN SODIUM,PORCINE 5,000 UNIT/ML 1 ML VIAL SQ SCH ×2 (08:05→20:54)
[2019-02-19] MEDS: PANTOPRAZOLE 40 MG TABLET PO SCH (08:05)
[2019-02-19] MEDS: OXYBUTYNIN CHLORIDE 5 MG TAB PO SCH ×2 (08:06→20:52)
[2019-02-19] MEDS ORDERED: VANCOMYCIN TROUGH DUE 1 EACH MISC MISCELLANE ONE (09:00)
[2019-02-19 09:17] LABS: Basophils % (A) 0 %; Eosinophils # (A) 0.1 k/uL (0-0.7); Eosinophils % (A) 3 %; HCT 35.4 % (34.0-46.0); HGB 11.1 gm/dL (11.4-16.0); Lymphocytes # (A) 0.9 k/uL (1.0-4.8); Lymphocytes % (A) 18 %; MCHC 31.4 g/dL (31.0-37.0); MCV 98.8 fL (80.0-100.0); Mean Platelet Volume 6.7; Monocytes # (A) 0.2 k/uL (0-1.0); Monocytes % (A) 5 %; Neutrophils # (A) 3.8 k/uL (1.3-7.7); Neutrophils % (A) 72 %; Platelet Count 316 k/uL (150-450); RBC 3.58 m/uL (3.80-5.40); RDW 13.3 % (11.5-15.5); WBC 5.2 k/uL (3.8-10.6)
[2019-02-19 09:33] LABS: African American GFR (CKD) >90 (>60 ml/min/1.73 sqM); Anion Gap 4 mmol/L; Blood Urea Nitrogen 9 mg/dL (7-17); Calcium 8.4 mg/dL (8.4-10.2); Carbon Dioxide 32 mmol/L (22-30); Chloride 103 mmol/L (98-107); Glucose 217 mg/dL (74-99); Potassium 4.1 mmol/L (3.5-5.1); Sodium 139 mmol/L (137-145)
[2019-02-19] MEDS ORDERED: VANCOMYCIN 1,000 MG in SODIUM CHLORIDE 0.9% 250 ML IVPB SCH (11:00)
--- NOTE | 2019-02-19 11:02 | P.PN ---
Progress Note - Text Progress Note Date: 02/19/19 The patient is resting comfortably in her bed. She has some minimal incisional pain. On exam her wound is clean. Patient will be discharged home per medicine. She'll follow-up Dr. Hamilton next week.
[2019-02-19] MEDS: SODIUM CHLORIDE 0.9% 1,000 ML IV SCH (12:36)
[2019-02-19] MEDS: ATORVASTATIN 10 MG TAB PO SCH (20:51)
[2019-02-19] MEDS: ACETAMINOPHEN TAB 325 MG TAB PO PRN (20:51)
[2019-02-19] MEDS: risperiDONE 1 MG TAB PO SCH (20:52)
[2019-02-19] MEDS: traZODone HCL 50 MG TAB PO SCH ×2 (20:53→21:11)
[2019-02-19] MEDS: CITALOPRAM HYDROBROMIDE 20 MG TAB PO SCH (20:54)
--- NOTE | 2019-02-19 22:55 | PN ---
PROGRESS NOTE DATE OF SERVICE: 02/19/2019. This 64-year-old woman who was admitted with significant infection of the right axilla is being closely monitored. The patient underwent incision and drainage. The findings are more like to rule out malignancy per surgeon's report. Otherwise, the Staph aureus was grown from the culture which is MSSA. PHYSICAL EXAM: Alert and oriented x3. Pulse is 72. Blood pressure is 108/50, respirations 16, temperature 98 degrees, pulse ox 93% on room air. HEENT: Conjunctivae normal. NECK: No JVD. CARDIOVASCULAR: S1, S2 muffled. RESPIRATORY: Breath sounds diminished in the bases. No rhonchi. No crackles. ABDOMEN is soft, nontender. LEGS: No edema. No swelling. CENTRAL NERVOUS SYSTEM: No focal deficits. Examination of the right axilla status post incision and drainage. LABS: At this time, WBC 5.2, hemoglobin 11.1, sodium 130, potassium 4.1. Glucose 217. ASSESSMENT: 1. Right axillary infection, status post incision and drainage, rule out malignancy, possible hidradenitis suppurativa with surrounding cellulitis and abscess. 2. Hyponatremia. 3. Increased WBC. 4. History of degenerative joint disease. 5. History of breast cancer of the left side. 6. History of anxiety, depression. 7. History of herpes simplex. 8. Remote history of nicotine dependence. RECOMMENDATIONS AND DISCUSSION: Recommend to continue current medications, monitoring and symptomatic treatment. Otherwise, at this time, we will monitor closely. We will change the antibiotics to Apresoline. Closely follow with Infectious Disease. Guarded prognosis. Further recommendations to follow. MMODL / IJN: [id number] /
[2019-02-20] MEDS: SODIUM CHLORIDE 0.9% 1,000 ML IV SCH ×2 (06:14→21:15)
[2019-02-20 07:14] LABS: Basophils % (A) 1 %; Eosinophils # (A) 0.2 k/uL (0-0.7); Eosinophils % (A) 3 %; HCT 34.8 % (34.0-46.0); HGB 11.2 gm/dL (11.4-16.0); Lymphocytes # (A) 1.6 k/uL (1.0-4.8); Lymphocytes % (A) 28 %; MCH 31.3 pg (25.0-35.0); MCHC 32.1 g/dL (31.0-37.0); MCV 97.4 fL (80.0-100.0); Mean Platelet Volume 6.3; Monocytes # (A) 0.4 k/uL (0-1.0); Monocytes % (A) 7 %; Neutrophils # (A) 3.3 k/uL (1.3-7.7); Neutrophils % (A) 59 %; Platelet Count 304 k/uL (150-450); RBC 3.57 m/uL (3.80-5.40); RDW 12.5 % (11.5-15.5); WBC 5.6 k/uL (3.8-10.6)
[2019-02-20 07:22] LABS: African American GFR (CKD) >90 (>60 ml/min/1.73 sqM); Anion Gap 3 mmol/L; Blood Urea Nitrogen 9 mg/dL (7-17); Calcium 8.7 mg/dL (8.4-10.2); Carbon Dioxide 33 mmol/L (22-30); Chloride 106 mmol/L (98-107); Glucose 128 mg/dL (74-99); Potassium 3.9 mmol/L (3.5-5.1); Sodium 142 mmol/L (137-145)
[2019-02-20] MEDS: ASPIRIN 81 MG PO SCH (08:38)
[2019-02-20] MEDS: MULTIVITAMINS, THERA 1 EACH TAB PO SCH (08:38)
[2019-02-20] MEDS: HEPARIN SODIUM,PORCINE 5,000 UNIT/ML 1 ML VIAL SQ SCH ×2 (08:38→21:10)
[2019-02-20] MEDS: OXYBUTYNIN CHLORIDE 5 MG TAB PO SCH ×2 (08:38→21:08)
[2019-02-20] MEDS: GABAPENTIN 100 MG CAP PO SCH ×3 (08:38→21:08)
[2019-02-20] MEDS: PANTOPRAZOLE 40 MG TABLET PO SCH (08:38)
[2019-02-20] MEDS: ACETAMINOPHEN TAB 325 MG TAB PO PRN ×2 (08:39→15:32)
--- NOTE | 2019-02-20 10:37 | P.PN ---
Progress Note - Text Progress Note Date: 02/20/19 The patient resting comfortably in her bed. She has minimal complaint of pain. On exam her vital signs are stable. Her dressing is clean. Status post axillary wound excision. Patient will be discharged home per medical service..
[2019-02-20] MEDS: CITALOPRAM HYDROBROMIDE 20 MG TAB PO SCH (21:08)
[2019-02-20] MEDS: risperiDONE 1 MG TAB PO SCH (21:09)
[2019-02-20] MEDS: ATORVASTATIN 10 MG TAB PO SCH (21:09)
[2019-02-20] MEDS: traZODone HCL 50 MG TAB PO SCH ×2 (21:09→21:48)
[2019-02-20] MEDS: ACETAMINOPHEN TAB 500 MG TAB PO PRN (21:11)
[2019-02-20 21:16] VITALS: RESP 16
--- NOTE | 2019-02-20 23:12 | PN ---
PROGRESS NOTE DATE OF SERVICE: 02/20/2019 This 64-year-old woman was admitted with significant abscess of the right axilla, had incision and drainage. Final biopsy and cultures are pending at this time. No chest pain. No palpitations. No fever. Cultures are showing MSSA. The patient is started on Kefzol at this time. No chest pain. No palpitations. No fever. EXAM: Alert and oriented x3. Pulse is 66. Blood pressure 130/78. Respiration 15, temperature 97.9, pulse ox 98% on room air. HEENT: Conjunctivae normal. NECK: No jugular venous distention. CARDIOVASCULAR: S1, S2 muffled. RESPIRATIONS: Breath sounds diminished in the bases. No rhonchi. No crackles. ABDOMEN is soft, nontender. LEGS no edema. No swelling. Examination of the right axilla, status post incision and drainage. LABS: WBC 5.6, hemoglobin 11.2. ASSESSMENT: 1. Right axilla infection, status post incision and drainage, rule out malignancy, possible hydradenitis suppurative with surrounding cellulitis and abscess with MSSA. 2. Hyponatremia. 3. Increased WBC. 4. History of degenerative joint disease. 5. History of breast cancer left side. 6. History of anxiety, depression. 7. History of herpes simplex type 2. 8. Remote history of nicotine dependence. RECOMMENDATIONS AND DISCUSSION: Recommend to continue current medications, continue with monitoring, symptomatic treatment. Continue with antibiotics. Closely follow with Infectious Disease. Await biopsy culture. Guarded prognosis. Further recommendations to follow. MMODL / IJN: [id number] /
--- NOTE | 2019-02-21 01:27 | PN ---
PROGRESS NOTE DATE OF SERVICE: 02/20/2019 REASON FOR FOLLOWUP: Right axillary abscess. INTERVAL HISTORY: The patient is currently afebrile. Patient is breathing comfortably. The pain to the right axilla has improved. Denies any chest pain. No cough. No abdominal pain. No diarrhea. PHYSICAL EXAMINATION: Blood pressure 136/78 with a pulse of 60, temperature is 97.9, she is 97% on room air. General description is a middle aged female lying in bed in no distress. Respiratory system: Unlabored breathing, clear to auscultation anteriorly. Heart S1, S2. Regular rate and rhythm. Abdomen soft, no tenderness. Right axilla with multiple wounds. Minimal soft tissue surrounding redness has improved and no drainage. LABS: Hemoglobin is 11.2, white count 5.6, BUN of 9, creatinine 0.79. Wound culture with MSSA. Blood culture has been negative. DIAGNOSTIC IMPRESSION AND PLAN: Patient with multiple right axillary abscess status post drainage and biopsy. The patient is currently on cefazolin 2 g q.8 hours to continue while waiting for the clinical condition to stabilize before ( ) antibiotics. Continue supportive care. MMODL / IJN: [id number] /
[2019-02-21 05:37] VITALS: BP 120/78; PULSE 76; TEMP 98.5
[2019-02-21] MEDS: PANTOPRAZOLE 40 MG TABLET PO SCH (07:06)
[2019-02-21] MEDS: GABAPENTIN 100 MG CAP PO SCH (08:11)
[2019-02-21] MEDS: OXYBUTYNIN CHLORIDE 5 MG TAB PO SCH (08:11)
[2019-02-21] MEDS: MULTIVITAMINS, THERA 1 EACH TAB PO SCH (08:11)
[2019-02-21] MEDS: ACETAMINOPHEN TAB 325 MG TAB PO PRN (08:11)
[2019-02-21] MEDS: ASPIRIN 81 MG PO SCH (08:11)
[2019-02-21] MEDS: HEPARIN SODIUM,PORCINE 5,000 UNIT/ML 1 ML VIAL SQ SCH (08:14)
--- NOTE | 2019-02-21 11:13 | P.PN ---
Subjective Progress Note Date: 02/21/19 CHIEF COMPLAINT: Multiple abscesses HISTORY OF PRESENT ILLNESS: Patient examined this morning at the bedside. She is s/p I&D and biopsy of right axillary abscesses. She reports minimal pain to right axilla. Denies nausea or vomiting. Tolerating diet. Cultures positive for MSSA. PHYSICAL EXAM: VITAL SIGNS: Reviewed. GENERAL: Well-developed in no acute distress. HEENT: No sclera icterus. Extraocular movements grossly intact. Moist buccal mucosa. Head is atraumatic, normocephalic. ABDOMEN: Soft. Nondistended. Nontender. NEUROLOGIC: Alert and oriented. Cranial nerves II through XII grossly intact. SKIN: Right axilla with dressing noted. Small amount of serosanguineous drainage ASSESSMENT: 1. Multiple abscesses of right axilla, s/p I&D and biopsy of right axillary abscesses, Cultures positive for MSSA 2. Leukocytosis, resolved PLAN: 1. Diet as tolerated 2. Continue antibiotics 3. Await bx results 4. Discharge per medicine. Follow up with Dr. Hamilton outpatient Nurse practitioner note has been reviewed by physician. Signing provider agrees with the documented findings, assessment, and plan of care. Objective - Vital Signs Vital signs: Vital Signs Temp 98.5 F 02/21/19 05:00 Pulse 76 02/21/19 05:00 Resp 16 02/21/19 05:00 BP 120/78 02/21/19 05:00 Pulse Ox 96 02/21/19 05:00 Intake & Output 02/20/19 02/21/19 02/21/19 18:59 06:59 18:59 Intake Total 1290 Balance 1290 Intake: Intake, IV Titration 850 Amount Sodium Chloride 0.9% 1, 800 000 ml @ 50 mls/hr IV . Q20H [facility] Rx#:[id number] ceFAZolin 2 gm In Sodium 50 Chloride 0.9% 50 ml @ 100 mls/hr IVPB Q8HR [facility] Rx# :[id number] Oral 440 Other: Voiding Method Toilet Toilet Toilet # Voids 6 3 1 - Labs CBC & Chem 7: 02/20/19 06:30 02/20/19 06:30 Labs: Microbiology - Last 24 Hours (Table) 02/17/19 14:30 Blood Culture - Preliminary Blood No Growth after 72 hours
--- NOTE | 2019-02-21 12:25 | PN ---
PROGRESS NOTE DATE OF SERVICE: 02/21/2019. REASON FOR FOLLOWUP: Right ankle area MSSA. INTERVAL HISTORY: The patient is currently afebrile. The patient has been breathing comfortably. The patient's pain to the right leg wound has decreased, did mention she took a Tylenol with relief for her pain. No chest pain. No abdominal pain, no diarrhea. PHYSICAL EXAMINATION: Blood pressure 120/78 with a pulse of 73, temperature 98.5, she is 96% on room air. General description is a middle-aged female, up in the room in no distress. RESPIRATORY SYSTEM: Unlabored breathing, clear to auscultation anteriorly. HEART: S1, S2. Regular rate and rhythm. ABDOMEN: Soft, no tenderness. RIGHT ANKLE: She did have multiple wounds with minimal slough tissue, surrounding redness has improved. No foul smelling. LABS: No new lab has been obtained today. Wound culture positive for MSSA. DIAGNOSTIC IMPRESSION AND PLAN: Patient with right ankle abscess, status post drainage. The patient has been insisting on going home. Antibiotic will be switched over to oral Keflex 500 mg 4 times a day for 10 days and close outpatient followup. Prescription was sent to the pharmacy. MMODL / IJN: [id number] /
--- NOTE | 2019-02-22 08:25 | P.DS ---
Providers Date of admission: 02/17/19 18:48 Expected date of discharge: 02/21/19 Attending physician: Ming Zepeda MD Consults: 02/17/19 17:30 Consult Physician Stat Consulting Provider: Ellis Meyer Consult Reason/Comments: Multiple abscesses in the right axilla. Phlegmon and cellulitis Do you want consulting provider notified?: Already Contacted 02/17/19 21:15 Consult Physician Routine Consulting Provider: Mookie Owen Consult Reason/Comments: cellulitis Do you want consulting provider notified?: Yes Primary care physician: [facility] Course: Final diagnosis Right axilla infection, status post incision and drainage, rule out malignancy, possible hidradenitis suppurative with surrounding cellulitis and abscess with MSSA hyponatremia Increased WBC History of degenerative joint disease History of breast cancer left side History of anxiety, depression History of herpes simplex type II Remote history of nicotine dependence Discharge disposition Patient is being discharged in a stable condition with guarded prognosis to home and will follow-up in the outpatient setting for biopsy results of the right axilla. Patient will complete a course of oral antibiotics and will follow-up in the wound care clinic in 1-2 weeks. Total time taken is 35 minutes. History of present illness This is a 64-year-old woman who was admitted with significant abscess of the right axilla and underwent an incision and drainage was being monitored closely. Infectious disease was following as well as surgery. Patient is currently awaiting biopsy report and culture reports have shown MSSA. Patient will continue a course of antibiotics in the form of oral Keflex 4 times daily for the next 10 days per infectious disease recommendations. Patient denies any chest pain, shortness of breath, or palpitations at this time. Patient has remained afebrile. Patient is having minimal discomfort in her right axilla. Patient states that she would like to go home today. Patient is awaiting to call her guardian Miss Kimble for a ride. Currently patient's condition is stable with much improvement. Guarded prognosis. On exam vital signs are stable. Blood pressure is 120/78, pulse is 76, respirations are 16, oxygen saturation is 96% on room air, temp is 98.5F. Cardio S1 and S2 are muffled. Respiratory system shows diminished breath sounds at bases otherwise clear upon auscultation. Abdomen is soft and nontender. Nervous system shows no focal deficits. Please refer to medication reconciliation sheet for a list of medications. Patient Condition at Discharge: Stable Plan - Discharge Summary Discharge Rx Participant: Yes New Discharge Prescriptions: New Cephalexin [Keflex] 500 mg PO Q6HR #40 cap Continue Multivitamins, Thera [Multivitamin (formulary)] 1 tab PO DAILY traZODone HCL 150 mg PO HS Citalopram Hydrobromide [Citalopram HBr] 40 mg PO HS Oxybutynin Chloride [Ditropan] 5 mg PO BID Atorvastatin [Lipitor] 10 mg PO HS Aspirin 81 mg PO DAILY Omeprazole 20 mg PO DAILY Gabapentin [Neurontin] 100 mg PO TID [place]-3 Fatty Acids [[place]-3] 1,000 mg PO HS risperiDONE 3 mg PO HS Acetaminophen [Tylenol Extra Strength] 1,000 mg PO HS PRN PRN Reason: Pain Discharge Medication List Aspirin 81 mg PO DAILY 05/19/18 [History] Atorvastatin [Lipitor] 10 mg PO HS 05/19/18 [History] Citalopram Hydrobromide [Citalopram HBr] 40 mg PO HS 05/19/18 [History] Gabapentin [Neurontin] 100 mg PO TID 05/19/18 [History] Multivitamins, Thera [Multivitamin (formulary)] 1 tab PO DAILY 05/19/18 [History] [place]-3 Fatty Acids [[place]-3] 1,000 mg PO HS 05/19/18 [History] Omeprazole 20 mg PO DAILY 05/19/18 [History] Oxybutynin Chloride [Ditropan] 5 mg PO BID 05/19/18 [History] traZODone HCL 150 mg PO HS 05/19/18 [History] Acetaminophen [Tylenol Extra Strength] 1,000 mg PO HS PRN 02/17/19 [History] risperiDONE 3 mg PO HS 02/17/19 [History] Cephalexin [Keflex] 500 mg PO Q6HR #40 cap 02/21/19 [Rx] Follow up Appointment(s)/Referral(s): Clark Hamilton MD [Medical Doctor] - 03/02/19 1:20 pm Mary Bell MD [Primary Care Provider] - 1-2 days (Please call office for appointment later today, their computers were down during discharge.) Brayden,Sajjad, MD [STAFF PHYSICIAN] - 02/28/19 9:15 am Patient Instructions/Handouts: Incision and Drainage (DC) Activity/Diet/Wound Care/Special Instructions: Activity limited until follow up continue current diet continue antibiotics until complete follow up with primary care provider this week follow up with specialist as instructed Dressing changes: Opticell Silver dressing and cover with gauze and then tape. Change daily. Discharge Disposition: HOME WITH HOME HEALTH SERVICES
== END 2019-02-21 13:45 | disposition home or self-care (01) | DRG 571 ==
LOC: EC 13:37 → 3NMEDONC 18:48
PROVIDERS: ADMIT Internal Medicine; ATTEND Internal Medicine
PROC: 0JBD0ZZ Excision of Right Upper Arm Subcutaneous Tissue and Fascia, Open Approach (ICD-10-PCS; 2019-02-18)
PROC: 0X940ZX Drainage of Right Axilla, Open Approach, Diagnostic (ICD-10-PCS; principal; 2019-02-18 10:50)
DX: L03.111 Cellulitis of right axilla (principal); E87.1 Hypo-osmolality and hyponatremia; L02.411 Cutaneous abscess of right axilla; F32.9 Major depressive disorder, single episode, unspecified; F41.9 Anxiety disorder, unspecified; Z79.82 Long term (current) use of aspirin; Z79.899 Other long term (current) drug therapy; Z85.3 Personal history of malignant neoplasm of breast; Z87.891 Personal history of nicotine dependence; Z90.13 Acquired absence of bilateral breasts and nipples; Z60.2 Problems related to living alone; L73.2 Hidradenitis suppurativa
CPT/HCPCS: 36415; 80048; 80053; 80202; 81003; 83605; 85025; 87040; 87070; 87077; 87186; 87205; 88304; 96365; 96366; 96367; 99284